=== PATIENT | male | born 1965 | race African-American/Black ===

== ENCOUNTER 2019-06-04 11:41 | Emergency (ER) | payer SELFPAY ==
[~2019-06-04] VITALS: Ht 172.7 cm; Wt 76.2 kg
[2019-06-04 12:01] VITALS: BP 171/100
[2019-06-04] MEDS ORDERED: AMOXICILLIN/K CLAV 875/125MG TABLET. PO ONE (12:15)
[2019-06-04] MEDS ORDERED: KETOROLAC 15 MG/ML VIAL. IVP ONE (12:15)
[2019-06-04 12:19] LABS: BILIRUBIN,URINE NEGATIVE (NEG); CLARITY,URINE CLEAR; COLOR,URINE YELLOW; NITRITE,URINE NEGATIVE (NEG); PROTEIN,URINE NEGATIVE (NEG-TRACE)
[2019-06-04 12:36] LABS: BASO # 0.1 x10^3/uL (0.0-0.2); BASO % 1 % (0-3); EOS % 0 % (0-3); HEMATOCRIT 39.5 % (39.0-53.0); HEMOGLOBIN 13.9 g/dL (13.0-17.5); LYMPH # 1.3 x10^3/uL (1.0-4.8); LYMPH % 18 % (24-48); MEAN CORPUSCULAR HEMOGLOBIN 35 pg (25-35); MEAN CORPUSCULAR HGB CONC 35 g/dL (31-37); MEAN CORPUSCULAR VOLUME 99 fL (79-100); MONO # 0.7 x10^3/uL (0.0-1.1); MONO % 9 % (0-9); NEUT # 5.4 x10^3/uL (1.8-7.7); NEUT % 72 % (31-73); PLATELET COUNT 247 x10^3/uL (140-400); RED BLOOD COUNT 3.98 x10^6/uL (4.30-5.70); RED CELL DISTRIBUTION WIDTH 13.7 % (11.5-14.5); WHITE BLOOD COUNT 7.4 x10^3/uL (4.0-11.0)
[2019-06-04 12:42] LABS: CALCIUM 8.6 mg/dL (8.5-10.1); CREATININE 0.8 mg/dL (0.7-1.3); GFR 122.4; POTASSIUM 3.7 mmol/L (3.5-5.1)
[2019-06-04 12:47] LABS: SQUAMOUS EPITHELIAL CELL,UR FEW /LPF
--- NOTE | 2019-06-04 12:47 | PHYS DOC ---
Past Medical History Past Medical History: No Pertinent History Additional Information: 1 PACK A DAY Alcohol Use: Heavy Additional Information: 1/2 PINT OF ALTON AND 24oz beer/ daily Drug Use: None Adult General Chief Complaint Chief Complaint: FLANK PAIN HPI HPI Patient is a 53 year old male presents with flank pain. Left side onset 2 weeks ago worse with palpation and twisting. Also has been dealing with a dental abscess for the last several days it is gotten worse last 2 days or so subj ective fever feels warm to touch left face feels swollen he tells me. Also he sustained an injury to his right hand over 1 month ago he says that there is a bump now he thinks the bone is healing well he wanted to get that checked out too. Patient doesn't have a primary care doctor he does drink multiple drinks today he smokes 1 pack per day he has not seen a doctor in several years he denies any dysuria or hematuria at this time Review of Systems Review of Systems Constitutional: HENT: Denies nasal congestion or sore throat [] Respiratory: Denies cough or shortness of breath [] Cardiovascular: No additional information not addressed in HPI [] GI: Denies abdominal pain, nausea, vomiting, bloody stools or diarrhea [] : Denies dysuria or hematuria [] Neurologic: Denies headache, focal weakness or sensory changes [] Endocrine: Denies polyuria or polydipsia [] All other systems were reviewed and found to be within normal limits, except as documented in this note. Current Medications Current Medications Current Medications Medications (Trade) Dose Ordered Sig/Alfonzo Start Time Stop Time Status Last Admin Dose Admin Amoxicillin/ Clavulanate Potassium (Augmentin 875/ 125mg) 1 tab 1X ONCE 06/04/19 12:15 06/04/19 13:18 DC 06/04/19 12:29 1 TAB Ketorolac Tromethamine (Toradol 15mg Vial) 15 mg 1X ONCE 06/04/19 12:15 06/04/19 13:18 DC 06/04/19 12:29 15 MG Physical Exam Physical Exam Constitutional: Well developed, well nourished, no acute distress, non-toxic appearance. [] HENT: Normocephalic, atraumatic, bilateral external ears normal, oropharynx moist, no oral exudates, nose normal. [] MILD FACIAL SWELLING LEFT, THERE IS AN ACTIVELY DRAINING SMALL PERIAPICAL ABS ESS LEFT LOWER MOLAR AREA 1-2 CM Eyes: PERRLA, EOMI, conjunctiva normal, no discharge. [] Neck: Normal range of motion, no tenderness, supple, no stridor. [] Cardiovascular:Heart rate regular rhythm, no murmur [] Lungs & Thorax: Bilateral breath sounds clear to auscultation [] Abdomen: Bowel sounds normal, soft, no tenderness, no masses, no pulsatile masses. [] Skin: Warm, dry, no erythema, no rash. [] Back: No tenderness, LEFT CVA tenderness. [] Extremities: TTP RIGHT HAND SWELLING NOTED ULNAR SIDE Neurologic: Alert and oriented X 3, normal motor function, normal sensory function, no focal deficits noted. [] Psychologic: Affect normal, judgement normal, mood normal. [] Current Patient Data Vital Signs Vital Signs Date Time Temp Pulse Resp B/P (MAP) Pulse Ox O2 Delivery O2 Flow Rate FiO2 06/04/19 12:01 100.3 84 18 171/100 (123) 94 Room Air 100.3 Lab Values Laboratory Tests Test 06/04/19 11:55 06/04/19 12:20 Urine Collection Type Unknown Urine Color Yellow Urine Clarity Clear Urine pH 6.0 Urine Specific [place] 1.010 Urine Protein Negative mg/dL (NEG-TRACE) Urine Glucose (UA) Negative mg/dL (NEG) Urine Ketones (Stick) Negative mg/dL (NEG) Urine Blood Negative (NEG) Urine Nitrite Negative (NEG) Urine Bilirubin Negative (NEG) Urine Urobilinogen Dipstick 1.0 mg/dL (0.2 mg/dL) Urine Leukocyte Esterase Negative (NEG) Urine RBC 1-2 /HPF (0-2) Urine WBC Occ /HPF (0-4) Urine Squamous Epithelial Cells Few /LPF Urine Bacteria 0 /HPF (0-FEW) Urine Mucus Slight /LPF White Blood Count 7.4 x10^3/uL (4.0-11.0) Red Blood Count 3.98 x10^6/uL (4.30-5.70) L Hemoglobin 13.9 g/dL (13.0-17.5) Hematocrit 39.5 % (39.0-53.0) Mean Corpuscular Volume 99 fL (79-100) Mean Corpuscular Hemoglobin 35 pg (25-35) Mean Corpuscular Hemoglobin Concent 35 g/dL (31-37) Red Cell Distribution Width 13.7 % (11.5-14.5) Platelet Count 247 x10^3/uL (140-400) Neutrophils (%) (Auto) 72 % (31-73) Lymphocytes (%) (Auto) 18 % (24-48) L Monocytes (%) (Auto) 9 % (0-9) Eosinophils (%) (Auto) 0 % (0-3) Basophils (%) (Auto) 1 % (0-3) Neutrophils # (Auto) 5.4 x10^3/uL (1.8-7.7) Lymphocytes # (Auto) 1.3 x10^3/uL (1.0-4.8) Monocytes # (Auto) 0.7 x10^3/uL (0.0-1.1) Eosinophils # (Auto) 0.0 x10^3/uL (0.0-0.7) Basophils # (Auto) 0.1 x10^3/uL (0.0-0.2) Sodium Level 142 mmol/L (136-145) Potassium Level 3.7 mmol/L (3.5-5.1) Chloride Level 102 mmol/L (98-107) Carbon Dioxide Level 25 mmol/L (21-32) Anion Gap 15 (6-14) H Blood Urea Nitrogen 10 mg/dL (8-26) Creatinine 0.8 mg/dL (0.7-1.3) Estimated GFR (Cockcroft-Gault) 122.4 BUN/Creatinine Ratio 13 (6-20) Glucose Level 72 mg/dL (70-99) Calcium Level 8.6 mg/dL (8.5-10.1) Total Bilirubin 0.5 mg/dL (0.2-1.0) Aspartate Amino Transferase (AST) 20 U/L (15-37) Alanine Aminotransferase (ALT) 15 U/L (16-63) L Alkaline Phosphatase 65 U/L (46-116) Total Protein 7.8 g/dL (6.4-8.2) Albumin 3.5 g/dL (3.4-5.0) Albumin/Globulin Ratio 0.8 (1.0-1.7) L Laboratory Tests 06/04/19 12:20 Laboratory Tests 06/04/19 12:20 EKG EKG [] Radiology/Procedures Radiology/Procedures [] Course & Med Decision Making Course & Med Decision Making Pertinent Labs and Imaging studies reviewed. (See chart for details) []FLANK PAIN LIKELY MSK NO B/B INCONTINENCE, DISTAL FUNCTION INTACT TWO WEEKS, REPRODUCIBLE, ABDO NONTENDER. U/A TRACE BLOOD, NOT A STORY FOR STONE, RECOMMENDED F/U OBTAIN PRIMARY F/U GAUDENCIO TO CHECK FOR CLEARANCE OF HEMATURIA. HAND PAIN ULNAR GUTTER APPLIED, MOSTLY HEALED ALREADY OVER A MONTH OLD. RECOMMENDED F/U FOR THIS. DENTAL INFECTION, SMALL ABSCESS DRAINING ON EXAM START WITH ABX, RX GIVEN PT HAS A DENTIST HE CAN CALL NEXT WEEK. Dragon Disclaimer Dragon Disclaimer This electronic medical record was generated, in whole or in part, using a voice recognition dictation system. Departure Departure Impression: Primary Impression: Dental abscess Disposition: HOME, SELF-CARE Condition: STABLE Referrals: NO PCP (PCP) Scripts Hydrocodone/Apap 5-325 (NORCO 5-325 TABLET) 1 Each Tablet 1-2 EACH PO PRN Q6HRS PRN for PAIN, #15 as needed for pain Prov: SARAH WANG MD 06/04/19 Amoxicillin/Potassium Clav (AUGMENTIN 875-125 TABLET) 1 Each Tablet 1 TAB PO BID for 10 Days, #20 TAB 0 Refills Prov: SARAH WANG MD 06/04/19 SARAH WANG MD Jun 04, 2019 12:47
[2019-06-04 12:48] LABS: BACTERIA,URINE 0 /HPF (0-FEW); WBC,URINE OCC /HPF (0-4)
[2019-06-04 12:48] LABS: ALBUMIN 3.5 g/dL (3.4-5.0); ALBUMIN/GLOBULIN RATIO 0.8 (1.0-1.7); TOTAL BILIRUBIN 0.5 mg/dL (0.2-1.0); TOTAL PROTEIN 7.8 g/dL (6.4-8.2)
--- NOTE | 2019-06-04 13:16 | RAD ---
HAND RIGHT 3V 06/04/2019 12:12 PM INDICATION: Trauma with right hand pain COMPARISON: None available. TECHNIQUE: 3 views the right hand are provided. FINDINGS/ IMPRESSION: 1. There is a mildly displaced fracture involving the neck of the fifth metacarpal with osseous formation suggestive of subacute fracture. Adjacent soft tissue swelling is present. 2. There is apex dorsal angulation of fracture. 3. Joint spaces are maintained. No intraventricular extension. No subcutaneous gas or osseous erosion. Electronically signed by: Rafaela Merida MD (06/04/2019 1:13 PM) [facility]
[2019-06-04] MEDS ORDERED: HYDR-3164 PO (13:27)
[2019-06-04] MEDS ORDERED: AMOX1TAB61 PO (13:27)
== END 2019-06-04 13:52 | disposition home or self-care (01) ==
LOC: ER 11:41
DX: K04.7 Periapical abscess without sinus (principal); M79.641 Pain in right hand; R10.9 Unspecified abdominal pain; F17.200 Nicotine dependence, unspecified, uncomplicated
CPT/HCPCS: 36415; 73130; 80053; 81001; 85025; 99285; J1885

== ENCOUNTER 2019-07-22 18:26 | Emergency (ER) | payer SELFPAY ==
[~2019-07-22] VITALS: Ht 170.2 cm; Wt 78.0 kg
[~2019-07-22 18:26] MED LIST: AMOX1TAB61 PO; HYDR-3164 PO
[2019-07-22 18:43] VITALS: BP 161/91
[2019-07-22 18:57] LABS: BILIRUBIN,URINE SMALL (NEG); CLARITY,URINE CLEAR; COLOR,URINE AMBER; NITRITE,URINE NEGATIVE (NEG); PROTEIN,URINE NEGATIVE (NEG-TRACE)
[2019-07-22 19:06] LABS: SQUAMOUS EPITHELIAL CELL,UR FEW /LPF
[2019-07-22 19:07] LABS: BACTERIA,URINE 0 /HPF (0-FEW)
[2019-07-22 19:54] LABS: BASO % 1 % (0-3); EOS % 1 % (0-3); HEMATOCRIT 39.8 % (39.0-53.0); HEMOGLOBIN 13.9 g/dL (13.0-17.5); LYMPH # 0.9 x10^3/uL (1.0-4.8); LYMPH % 24 % (24-48); MEAN CORPUSCULAR HEMOGLOBIN 35 pg (25-35); MEAN CORPUSCULAR HGB CONC 35 g/dL (31-37); MEAN CORPUSCULAR VOLUME 99 fL (79-100); MONO # 0.4 x10^3/uL (0.0-1.1); MONO % 10 % (0-9); NEUT # 2.5 x10^3/uL (1.8-7.7); NEUT % 65 % (31-73); PLATELET COUNT 210 x10^3/uL (140-400); RED BLOOD COUNT 4.03 x10^6/uL (4.30-5.70); RED CELL DISTRIBUTION WIDTH 13.1 % (11.5-14.5); WHITE BLOOD COUNT 3.8 x10^3/uL (4.0-11.0)
--- NOTE | 2019-07-22 19:55 | PHYS DOC ---
Past Medical History Past Medical History: No Pertinent History (STEVEN HOLLINGSWORTH APRN) Past Surgical History: No Surgical History (STEVEN HOLLINGSWORTH APRN) Alcohol Use: Heavy Drug Use: None (STEVEN HOLLINGSWORTH APRN) Attending Signature I have participated in the care of this patient and I have reviewed and agree with all pertinent clinical information above including history, exam, and recommendations. (KEN BERG MD) Adult General Chief Complaint Chief Complaint: LOWER BACK PAIN OR INJURY HPI HPI Patient is a 53 year old [male] who presents with [left flank pain. Patient reports he has had this similar pain for the past month, reports the last couple days it seems to have, little bit worse, states it was so bad last that he could not sleep. States no trauma. States no change in urination. States no fever recently. Reports last bowel movement this morning states he just feels like a burning feeling inside reports he had been seen here 1 month ago for similar symptoms. Reports he thinks he might be a diabetic but he is not sure as he does not have a primary care and has never followed up.] (STEVEN HOLLINGSWORTH APRN) Review of Systems Review of Systems Constitutional: Denies fever or chills [] Eyes: Denies change in visual acuity, redness, or eye pain does report occasional blurred vision [] HENT: Denies nasal congestion or sore throat [] Respiratory: Denies cough or shortness of breath [] Cardiovascular: No additional information not addressed in HPI [] GI: Denies nausea, vomiting, bloody stools or diarrhea, does report intermittent burning pain to the left flank always in same spot [] : Denies dysuria or hematuria [] Musculoskeletal: States intermittent lower back pain[] Integument: Denies rash or skin lesions [] Neurologic: Denies headache, focal weakness or sensory changes [] Endocrine: Denies polyuria or polydipsia [] All other systems were reviewed and found to be within normal limits, except as documented in this note. (STEVEN HOLLINGSWORTH APRN) Allergies Allergies Allergies Coded Allergies Type Severity Reaction Last Updated Verified No Known Drug Allergies 07/22/19 No (KEN BERG MD) Physical Exam Physical Exam Constitutional: Well developed, well nourished, no acute distress, non-toxic appearance. [] HENT: Normocephalic, atraumatic, bilateral external ears normal, oropharynx moist, no oral exudates, nose normal. [] Eyes: PERRLA, EOMI, conjunctiva normal, no discharge. [] Neck: Normal range of motion, no tenderness, supple, no stridor. [] Cardiovascular:Heart rate regular rhythm, no murmur [] Lungs & Thorax: Bilateral breath sounds clear to auscultation [] Abdomen: Bowel sounds normal, soft, no tenderness, no masses, no pulsatile masses. No tenderness, no bruising, no deformity noted on palpation over the site where patient notes discomfort, patient continue moving, twisting torso, bending over in no apparent distress or discomfort[] Skin: Warm, dry, no erythema, no rash. [] Back: No tenderness, no CVA tenderness. [] Extremities: No tenderness, no cyanosis, no clubbing, ROM intact, no edema. [] Neurologic: Alert and oriented X 3, normal motor function, normal sensory function, no focal deficits noted. [] Psychologic: Affect normal, judgement normal, mood normal. [] (STEVEN HOLLINGSWORTH APRN) Current Patient Data Vital Signs Vital Signs Date Time Temp Pulse Resp B/P (MAP) Pulse Ox O2 Delivery O2 Flow Rate FiO2 07/22/19 18:43 98.2 97 16 161/91 (114) 98 Room Air 98.2 (KEN BERG MD) Lab Values Laboratory Tests Test 07/22/19 18:50 07/22/19 19:44 Urine Collection Type Unknown Urine Color [place] Urine Clarity Clear Urine pH 6.0 Urine Specific [place] >=1.030 Urine Protein Negative mg/dL (NEG-TRACE) Urine Glucose (UA) Negative mg/dL (NEG) Urine Ketones (Stick) Negative mg/dL (NEG) Urine Blood Negative (NEG) Urine Nitrite Negative (NEG) Urine Bilirubin Small (NEG) Urine Urobilinogen Dipstick 1.0 mg/dL (0.2 mg/dL) Urine Leukocyte Esterase Negative (NEG) Urine RBC 1-2 /HPF (0-2) Urine WBC 1-4 /HPF (0-4) Urine Squamous Epithelial Cells Few /LPF Urine Bacteria 0 /HPF (0-FEW) Urine Mucus Marked /LPF White Blood Count 3.8 x10^3/uL (4.0-11.0) L Red Blood Count 4.03 x10^6/uL (4.30-5.70) L Hemoglobin 13.9 g/dL (13.0-17.5) Hematocrit 39.8 % (39.0-53.0) Mean Corpuscular Volume 99 fL (79-100) Mean Corpuscular Hemoglobin 35 pg (25-35) Mean Corpuscular Hemoglobin Concent 35 g/dL (31-37) Red Cell Distribution Width 13.1 % (11.5-14.5) Platelet Count 210 x10^3/uL (140-400) Neutrophils (%) (Auto) 65 % (31-73) Lymphocytes (%) (Auto) 24 % (24-48) Monocytes (%) (Auto) 10 % (0-9) H Eosinophils (%) (Auto) 1 % (0-3) Basophils (%) (Auto) 1 % (0-3) Neutrophils # (Auto) 2.5 x10^3/uL (1.8-7.7) Lymphocytes # (Auto) 0.9 x10^3/uL (1.0-4.8) L Monocytes # (Auto) 0.4 x10^3/uL (0.0-1.1) Eosinophils # (Auto) 0.0 x10^3/uL (0.0-0.7) Basophils # (Auto) 0.0 x10^3/uL (0.0-0.2) Sodium Level 140 mmol/L (136-145) Potassium Level 3.8 mmol/L (3.5-5.1) Chloride Level 101 mmol/L (98-107) Carbon Dioxide Level 29 mmol/L (21-32) Anion Gap 10 (6-14) Blood Urea Nitrogen 13 mg/dL (8-26) Creatinine 0.9 mg/dL (0.7-1.3) Estimated GFR (Cockcroft-Gault) 106.8 Glucose Level 130 mg/dL (70-99) H Calcium Level 9.4 mg/dL (8.5-10.1) Laboratory Tests 07/22/19 19:44 Laboratory Tests 07/22/19 19:44 (KEN BERG MD) EKG EKG [] (STEVEN HOLLINGSWORTH APRN) Radiology/Procedures Radiology/Procedures [] (STEVEN HOLLINGSWORTH APRN) Course & Med Decision Making Course & Med Decision Making Pertinent Labs and Imaging studies reviewed. (See chart for details) [Discussed findings with patient without any noted cause for his discomfort, believed to be musculoskeletal, however patient continues with full range of motion, flexing, twisting without noted discomfort. Discussed the patient again importance of following up with primary care establishing primary care to manages his chronic discomfort. And to address his concerns over diabetes. Discharge patient also reports he continues to have some discomfort in the lower left jaw had a dental issue last month, since he continued to have discomfort and he thinks he still has an infection in that tooth. Will provide Rx for Antispasmodic and for dental caries ] (STEVEN HOLLINGSWORTH APRN) Dragon Disclaimer Dragon Disclaimer This electronic medical record was generated, in whole or in part, using a voice recognition dictation system. (STEVEN HOLLINGSWORTH APRN) Departure Departure Impression: Primary Impression: Dental caries Additional Impression: Abdominal pain Disposition: HOME, SELF-CARE Condition: GOOD Referrals: NO PCP (PCP) Patient Instructions: Abdominal Pain, Dental Caries Additional Instructions: As we discussed, take the stomach medications anytime or having that abdominal pain. He may also try Tylenol or ibuprofen in addition to it. Take the antibiotics for your tooth as prescribed, and try to get into a dentist. Get into a primary care provider to manage your chronic pain complaints and to monitor your blood sugars. Scripts Dicyclomine Hcl (DICYCLOMINE HCL) 10 Mg Capsule 1 CAP PO PRN Q6HRS, #15 CAP 3 Refills Prov: STEVEN HOLLINGSWORTH APRN 07/22/19 Penicillin V Potassium (PENICILLIN V POTASSIUM) 500 Mg Tablet 1 TAB PO TID for 10 Days, #30 TAB Prov: STEVEN HOLLINGSWORTH APRN 07/22/19 Problem Qualifiers Additional Impression: Abdominal pain Abdominal location: left upper quadrant Qualified Codes: R10.12 - Left upper quadrant pain STEVEN HOLLINGSWORTH APRN Jul 22, 2019 19:54 KEN BERG MD Jul 23, 2019 02:36
[2019-07-22 20:03] LABS: CALCIUM 9.4 mg/dL (8.5-10.1); CREATININE 0.9 mg/dL (0.7-1.3); GFR 106.8; POTASSIUM 3.8 mmol/L (3.5-5.1)
[2019-07-22] MEDS ORDERED: PENI500T PO (22:08)
[2019-07-22] MEDS ORDERED: DICY10CA3 PO (22:08)
--- NOTE | 2019-07-22 22:31 | RAD ---
EXAM: Supine AP view of the abdomen DATE: 07/22/2019 7:37 PM INDICATION: COMPARISON: No Prior FINDINGS: No abnormal small or large bowel dilatation. Moderate to large volume colonic stool content. No abnormal soft tissue mass effect. No suspicious calcifications are seen. Evaluation for free intraperitoneal gas is limited on this supine exam. IMPRESSION: 1. No evidence for bowel obstruction. 2. Moderate to large volume colonic stool content. Electronically signed by: Pavan Arce MD (07/22/2019 10:28 PM) [facility]
== END 2019-07-22 22:15 | disposition home or self-care (01) ==
LOC: ER 18:26
DX: K02.9 Dental caries, unspecified (principal); R10.12 Left upper quadrant pain; F10.10 Alcohol abuse, uncomplicated
CPT/HCPCS: 36415; 74018; 80048; 81001; 85025; 99285